=== PATIENT | female | born 1980 | race African-American/Black ===

== ENCOUNTER 2017-07-10 07:47 | Emergency (ER) | payer SELFPAY ==
[2017-07-10] MEDS: IBUPROFEN 800 MG TABLET. PO (08:53)
[2017-07-10 08:56] LABS: INFLUENZA B PATIENT NEGATIVE (NEGATIVE)
[2017-07-10 08:57] LABS: INFLUENZA A PATIENT POSITIVE (NEGATIVE); OBC FLU VALID
== END 2017-07-10 09:30 | disposition home or self-care (01) ==
LOC: ER 07:47
DX: J09.X2 Influenza due to identified novel influenza A virus with other respiratory manifestations (principal)
CPT/HCPCS: 87804; 87804-59; 99284

== ENCOUNTER 2019-07-14 06:42 | Emergency (ER) | payer SELFPAY ==
[2017-07-10 08:20] VITALS: BP 104/62
[~2019-07-14 06:42] MED LIST: FAMO-63 PO; OSEL75CA PO; PRED-220 PO; TRIA15OI TP
== END 2019-07-14 06:58 | disposition left against medical advice (07) ==
LOC: ER 06:42
DX: R10.9 Unspecified abdominal pain (principal); Z53.21 Procedure and treatment not carried out due to patient leaving prior to being seen by health care provider

== ENCOUNTER 2021-10-03 07:49 | Emergency (ER) | payer SELFPAY ==
[~2021-10-03] VITALS: Ht 157.5 cm; Wt 65.9 kg
--- NOTE | 2021-10-03 08:05 | PHYS DOC ---
Past Medical History Past Medical History: No Pertinent History Past Surgical History: Smoking Status: Never Smoker Alcohol Use: Occasionally Drug Use: None General Adult EDM: Chief Complaint: CHEST PAIN HPI: HPI: Patient is a 41 year old female presents to the ER with chest pain. 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 Patient denies any diaphoresis. Patient states that this is happened in the past 9 years ago and was diagnosed with GERD. Patient was sent to the ER for evaluation and medical clearance. Patient denies any shortness of breath. Review of Systems: Review of Systems: Constitutional: Denies fever or chills. [] Eyes: Denies change in visual acuity. [] HENT: Denies nasal congestion or sore throat. [] Respiratory: Denies cough or shortness of breath. [] Cardiovascular: Substernal chest tightness nausea GI: Reports nausea denies abdominal pain, nausea,, bloody stools or diarrhea. [] : Denies dysuria. [] Musculoskeletal: Denies back pain or joint pain. [] Integument: Denies rash. [] Neurologic: Denies headache, focal weakness or sensory changes. [] Endocrine: Denies polyuria or polydipsia. [] Lymphatic: Denies swollen glands. [] Psychiatric: Denies depression or anxiety. [] Heart Score: C/O Chest Pain: Yes HEART Score for Chest Pain: HEART Score for Chest Pain Response (Comments) Value History Slighlty/Non-Suspicious 0 ECG Normal 0 Age < 45 0 Risk Factors No Risk Factors 0 Troponin < Normal Limit 0 Total 0 Risk Factors: Risk Factors: DM, Current or recent (<one month) smoker, HTN, HLP, family history of CAD, obesity. Risk Scores: Score 0 - 3: 2.5% MACE over next 6 weeks - Discharge Home Score 4 - 6: 20.3% MACE over next 6 weeks - Admit for Clinical Observation Score 7 - 10: 72.7% MACE over next 6 weeks - Early Invasive Strategies Allergies: Allergies: Allergies Coded Allergies Type Severity Reaction Last Updated Verified No Known Drug Allergies 01/13/16 No Physical Exam: PE: Constitutional: Well developed, well nourished, no acute distress, non-toxic appearance. [] HENT: Normocephalic, atraumatic, bilateral external ears normal, oropharynx moist, no oral exudates, nose normal. [] Eyes: PERRLA, EOMI, conjunctiva normal, no discharge. [] Neck: Normal range of motion, no tenderness, supple, no stridor. [] Cardiovascular:Heart rate regular rhythm, no murmur [] Lungs & Thorax: Bilateral breath sounds clear to auscultation [] Abdomen: Bowel sounds normal, soft, no tenderness, no masses, no pulsatile masses. [] Skin: Warm, dry, no erythema, no rash. [] Back: No tenderness, no CVA tenderness. [] Extremities: No tenderness, no cyanosis, no clubbing, ROM intact, no edema. [] Neurologic: Alert and oriented X 3, normal motor function, normal sensory function, no focal deficits noted. [] Psychologic: Affect normal, judgement normal, mood normal. [] EKG: EKG: Heart rate of 74. Normal sinus rhythm QTc 429 FL interval 162. No signs of ischemic change [] Radiology/Procedures: Radiology/Procedures: []EXAMINATION: XR CHEST 1V CLINICAL HISTORY: Chest pain. EXAM DATE/TIME: 10/03/2021 8:21 AM COMPARISON: None FINDINGS: Lines, Tubes, and Devices: None. Cardiomediastinal Silhouette: Within normal limits. Lungs and Pleura: No evidence of focal airspace consolidation or pleural effusion. Questionable mild right basilar opacities thought to be artifactual from multiple overlapping densities. Pulmonary vasculature unremarkable. Bones and Soft Tissues: No acute osseous abnormality. IMPRESSION: No evidence of acute cardiopulmonary abnormality. Course & Med Decision Making: Course & Med Decision Making Pertinent Labs and Imaging studies reviewed. (See chart for details) [] Patient was reevaluated after receiving GI cocktail and states that she feels much better. All symptoms are resolved. Patient's heart score is 0. Return precautions were discussed Patient has 2 negative troponins with a heart score of 0 patient will be discharged precautions were discussed Gabriele Disclaimer: Gabriele Disclaimer: This electronic medical record was generated, in whole or in part, using a voice recognition dictation system. Departure Departure Impression: Primary Impression: GERD (gastroesophageal reflux disease) Disposition: HOME / SELF CARE / HOMELESS Condition: STABLE Referrals: NO PCP (PCP) Scripts Famotidine (PEPCID) 20 Mg Tablet 20 MG PO BID, #30 TAB Prov: YOU MEIER DO 10/03/21 YOU MEIER DO Oct 03, 2021 08:05
[2021-10-03] MEDS ORDERED: MAG HYDROX/ALUMINUM HYD/SIMETH 30 ML ORAL.SUSP PO ONE (08:15)
[2021-10-03] MEDS ORDERED: FAMOTIDINE 20 MG/2 ML VIAL IVP ONE (08:15)
--- NOTE | 2021-10-03 08:41 | RAD ---
EXAMINATION: XR CHEST 1V CLINICAL HISTORY: Chest pain. EXAM DATE/TIME: 10/03/2021 8:21 AM COMPARISON: None FINDINGS: Lines, Tubes, and Devices: None. Cardiomediastinal Silhouette: Within normal limits. Lungs and Pleura: No evidence of focal airspace consolidation or pleural effusion. Questionable mild right basilar opacities thought to be artifactual from multiple overlapping densities. Pulmonary vasc ulature unremarkable. Bones and Soft Tissues: No acute osseous abnormality. IMPRESSION: No evidence of acute cardiopulmonary abnormality. Electronically signed by: Ibrahima Bautista DO (10/03/2021 8:38 AM) [id number]
[2021-10-03 08:55] LABS: BASO # 0.1 x10^3/uL (0.0-0.2); BASO % 2 % (0-3); EOS # 0.1 x10^3/uL (0.0-0.7); EOS % 2 % (0-3); HEMOGLOBIN 10.5 g/dL (12.0-15.5); LYMPH # 1.3 x10^3/uL (1.0-4.8); LYMPH % 36 % (24-48); MEAN CORPUSCULAR HEMOGLOBIN 21 pg (25-35); MEAN CORPUSCULAR HGB CONC 32 g/dL (31-37); MEAN CORPUSCULAR VOLUME 66 fL (79-100); MONO # 0.4 x10^3/uL (0.0-1.1); MONO % 12 % (0-9); NEUT # 1.8 x10^3/uL (1.8-7.7); NEUT % 49 % (31-73); PLATELET COUNT 286 x10^3/uL (140-400); RED BLOOD COUNT 4.97 x10^6/uL (3.50-5.40); RED CELL DISTRIBUTION WIDTH 15.2 % (11.5-14.5); WHITE BLOOD COUNT 3.6 x10^3/uL (4.0-11.0)
[2021-10-03 09:06] LABS: CALCIUM 8.6 mg/dL (8.5-10.1); CREATININE 0.7 mg/dL (0.6-1.0); GFR 111.6; POTASSIUM 4.2 mmol/L (3.5-5.1)
[2021-10-03 09:07] LABS: PREG TEST PT QUAL NEGATIVE (NEG)
[2021-10-03 09:12] LABS: ALBUMIN 3.3 g/dL (3.4-5.0); ALBUMIN/GLOBULIN RATIO 0.9 (1.0-1.7); TOTAL BILIRUBIN 0.4 mg/dL (0.2-1.0); TOTAL PROTEIN 6.9 g/dL (6.4-8.2)
[2021-10-03] MEDS ORDERED: FAMO-63 PO (09:56)
[2021-10-03 10:24] LABS: ANISOCYTOSIS PRESENT; HYPOCHROMIA MOD; MICROCYTOSIS MARKED; PLT ESTIMATE ADEQUATE (ADEQUATE)
[2021-10-03 11:51] VITALS: BP 110/73
--- NOTE | 2021-10-03 14:52 | EKG ---
[facility] [address] [place] [address] Test Date: 2021-10-03 Test Time: 07:55:42 Pat Name: LIZBETH DE LOS SANTOS Department: Room: Gender: F Director Foundation: 8 : 1980 Requested By: YOU MEIER Order Number: [id number] Reading MD: Thony Luz Measurements Intervals [place] Rate: 74 P: 52 NH: 162 QRS: 45 QRSD: 72 T: 49 QT: 386 QTc: 429 Interpretive Statements SINUS RHYTHM Electronically Signed On 10-08-2021 18:10:44 CDT by Thony Luz
== END 2021-10-03 11:51 | disposition home or self-care (01) ==
LOC: ER 07:49
DX: K21.9 Gastro-esophageal reflux disease without esophagitis (principal); Z98.890 Other specified postprocedural states
CPT/HCPCS: 36415; 71045; 80053; 83690; 84484; 84703; 85025; 93005; 99285-25